=== PATIENT | female | born 1990 | race Caucasian/White ===

== ENCOUNTER 2025-03-12 13:04 | Outpatient (CLI) | payer BC | END 2025-03-12 13:05 | disposition home or self-care (01) | LOC: CSHMRI 13:04 | PROVIDERS: ATTEND Internal Medicine | DX: M51.17 Intervertebral disc disorders with radiculopathy, lumbosacral region (principal); G89.29 Other chronic pain; M51.16 Intervertebral disc disorders with radiculopathy, lumbar region; M47.27 Other spondylosis with radiculopathy, lumbosacral region | CPT/HCPCS: 72148 ==